=== PATIENT | male | born 1950 | race African-American/Black ===

== ENCOUNTER 2018-06-12 07:55 | Emergency (ER) | payer MEDICARE, OTHER ==
[~2018-06-12] VITALS: Ht 180.3 cm; Wt 96.2 kg
[2018-06-12] MEDS ORDERED: ACETAMINOPHEN 500 MG TABLET PO ONE (08:30)
--- NOTE | 2018-06-12 08:38 | RAD ---
PA and lateral chest radiograph. History: Cough, dyspnea. Comparison: None. Findings: Cardiomediastinal silhouette is within normal limits for size. Bilateral lung david appear clear without evidence of infiltrate, effusion, or pneumothorax. Multiple thoracic levels demonstrate marginal disc osteophytes. Impression: 1. No acute cardiopulmonary process. Electronically signed by: Bar Razo MD (06/12/2018 8:34 AM) [place] [id number]
[2018-06-12 08:52] LABS: BASO # 0.1 x10^3/uL (0.0-0.2); BASO % 1 % (0-3); EOS # 0.1 x10^3/uL (0.0-0.7); EOS % 1 % (0-3); HEMATOCRIT 42.6 % (39.0-53.0); HEMOGLOBIN 14.2 g/dL (13.0-17.5); LYMPH # 0.9 x10^3/uL (1.0-4.8); LYMPH % 10 % (24-48); MEAN CORPUSCULAR HEMOGLOBIN 33 pg (25-35); MEAN CORPUSCULAR HGB CONC 33 g/dL (31-37); MEAN CORPUSCULAR VOLUME 98 fL (79-100); MONO # 0.6 x10^3/uL (0.0-1.1); MONO % 7 % (0-9); NEUT # 7.2 x10^3uL (1.8-7.7); NEUT % 81 % (31-73); PLATELET COUNT 265 x10^3/uL (140-400); RED BLOOD COUNT 4.33 x10^6/uL (4.30-5.70); RED CELL DISTRIBUTION WIDTH 14.4 % (11.5-14.5); WHITE BLOOD COUNT 8.8 x10^3/uL (4.0-11.0)
--- NOTE | 2018-06-12 09:02 | PHYS DOC ---
Past History Past Medical History: No Pertinent History Past Surgical History: No Surgical History Alcohol Use: None Drug Use: None Adult General Chief Complaint Chief Complaint: SHORTNESS OF BREATH HPI HPI Patient is a 68-year-old male who presents with complaint of lower back pain that has been present for the last couple weeks. Patient states that pain has progressively gotten worse. He states that he has been to see a chiropractor and has had adjustments which initially helped somewhat but the pain always returns. He denies any injuries. He also denies any urinary discomfort. He does admit to fever however. He states that he has been a little bit short of breath and has had a mild intermittent cough. He denies any actual sputum production. Patient states that pain is worsened with bending over. He states that nothing seems to improve the pain. He rates pain as moderate. Review of Systems Review of Systems Constitutional: Admits to fever and chills[] Respiratory: Admits to mild cough and shortness of breath [] Cardiovascular: Denies chest pain Abdominal: Denies abdominal pain but does admit to mild abdominal bloating. Musculoskeletal: Admits to lower back pain [] Integument: Denies rash or skin lesions [] Neurologic: Denies loss of bowel or bladder function [] All other systems were reviewed and found to be within normal limits, except as documented in this note. Current Medications Current Medications Current Medications Medications (Trade) Dose Ordered Sig/Alejandro Start Time Stop Time Status Last Admin Dose Admin Acetaminophen (Tylenol) 1,000 mg 1X ONCE 06/12/18 08:30 06/12/18 08:31 UNV 06/12/18 08:50 1,000 MG Physical Exam Physical Exam Constitutional: Well developed, well nourished, no acute distress, non-toxic appearance. [] HENT: Normocephalic, atraumatic, bilateral external ears normal, oropharynx moist, no oral exudates, nose normal. [] Eyes: PERRLA, EOMI, conjunctiva normal, no discharge. [] Neck: Normal range of motion, no tenderness, supple, no stridor. [] Cardiovascular:Heart rate regular rhythm, no murmur [] Lungs & Thorax: Bilateral breath sounds clear to auscultation [] Abdomen: Bowel sounds normal, soft, no tenderness, no masses, no pulsatile masses. [] Skin: Warm, dry, no erythema, no rash. [] Back: There is mild tenderness to palpation in the bilateral lower lumbar paraspinal musculature. [] Extremities: No tenderness, no cyanosis, no clubbing, ROM intact, no edema. [] Neurologic: Alert and oriented X 3, normal motor function, normal sensory function, no focal deficits noted. [] Current Patient Data Vital Signs Vital Signs Date Time Temp Pulse Resp B/P (MAP) Pulse Ox O2 Delivery O2 Flow Rate FiO2 06/12/18 08:00 100.0 103 22 96 Room Air Lab Results Laboratory Tests Test 06/12/18 08:37 White Blood Count 8.8 x10^3/uL (4.0-11.0) Red Blood Count 4.33 x10^6/uL (4.30-5.70) Hemoglobin 14.2 g/dL (13.0-17.5) Hematocrit 42.6 % (39.0-53.0) Mean Corpuscular Volume 98 fL (79-100) Mean Corpuscular Hemoglobin 33 pg (25-35) Mean Corpuscular Hemoglobin Concent 33 g/dL (31-37) Red Cell Distribution Width 14.4 % (11.5-14.5) Platelet Count 265 x10^3/uL (140-400) Neutrophils (%) (Auto) 81 % (31-73) H Lymphocytes (%) (Auto) 10 % (24-48) L Monocytes (%) (Auto) 7 % (0-9) Eosinophils (%) (Auto) 1 % (0-3) Basophils (%) (Auto) 1 % (0-3) Neutrophils # (Auto) 7.2 x10^3uL (1.8-7.7) Lymphocytes # (Auto) 0.9 x10^3/uL (1.0-4.8) L Monocytes # (Auto) 0.6 x10^3/uL (0.0-1.1) Eosinophils # (Auto) 0.1 x10^3/uL (0.0-0.7) Basophils # (Auto) 0.1 x10^3/uL (0.0-0.2) EKG EKG [] Radiology/Procedures Radiology/Procedures [] Impressions: Impression: 1. Examination is nondiagnostic for detection of pulmonary embolism. 2. Trace left pleural effusion. 3. Stigmata of cirrhosis and portal hypertension. Ascites. 4. Abnormal appearance to the main portal vein. It is uncertain if there is portal venous thrombosis versus mixing artifact. Course & Med Decision Making Course & Med Decision Making Pertinent Labs and Imaging studies reviewed. Patient does indicate that he is aware of diagnosis of cirrhosis. Patient strongly encouraged to establish care with a new primary care physician. (See chart for details) [] Dragon Disclaimer Dragon Disclaimer This electronic medical record was generated, in whole or in part, using a voice recognition dictation system. Departure Departure: Impression: Primary Impression: Urinary tract infection Additional Impressions: Cirrhosis Ascites Disposition: HOME, SELF-CARE Condition: STABLE Referrals: LUZ SALINAS DO (PCP) Patient Instructions: Ascites, Cirrhosis, Urinary Tract Infection Additional Instructions: Take prescribed medication as directed and tablets care with a primary care physician in the next week. Problem Qualifiers Primary Impression: Urinary tract infection Urinary tract infection type: site unspecified Hematuria presence: without hematuria Qualified Codes: N39.0 - Urinary tract infection, site not specified Additional Impressions: Cirrhosis Hepatic cirrhosis type: unspecified hepatic cirrhosis Ascites presence: with ascites Qualified Codes: K74.60 - Unspecified cirrhosis of liver; R18.8 - Other ascites Ascites Ascites type: other type Qualified Codes: R18.8 - Other ascites ESTRELLA ADRIAN Jr., DO Jun 12, 2018 09:02
[2018-06-12 09:31] LABS: ALBUMIN 2.8 g/dL (3.4-5.0); ALBUMIN/GLOBULIN RATIO 0.4 (1.0-1.7); CALCIUM 9.2 mg/dL (8.5-10.1); CREATININE 1.2 mg/dL (0.7-1.3); GFR 73.1; POTASSIUM 3.8 mmol/L (3.5-5.1); TOTAL BILIRUBIN 1.3 mg/dL (0.2-1.0); TOTAL PROTEIN 9.4 g/dL (6.4-8.2)
[2018-06-12 10:48] LABS: BACTERIA,URINE FEW /HPF (0-FEW); BILIRUBIN,URINE NEG (NEG); CLARITY,URINE HAZY; COLOR,URINE AMBER; GLUCOSE,URINE NEG (NEG); NITRITE,URINE POS (NEG); SQUAMOUS EPITHELIAL CELL,UR FEW /LPF; UROBILINOGEN,URINE 1 mg/dL (0.2 mg/dL); WBC,URINE >40 /HPF (0-4)
[2018-06-12] MEDS ORDERED: IOHEXOL 300 MG/ML 75 ML VIAL. IV ONE (11:20)
[2018-06-12] MEDS ORDERED: cefTRIAXone IV Push 1 GM VIAL. IVP ONE (11:30)
--- NOTE | 2018-06-12 11:36 | RAD ---
CT pulmonary angiogram with intravenous contrast History: Shortness air. Elevated d-dimer. Chest pain Comparison: None. Technique: CT angiogram of the chest with attention to the pulmonary arteries was performed after the administration of intravenous contrast, 75 mL Omnipaque-300. Axial 2-D reconstructions were obtained. Coronal 3-D MIPS were obtained of the chest. Exposure: One or more of the following individualized dose reduction techniques were utilized for this examination: 1. Automated exposure control 2. Adjustment of the mA and/or kV according to patient size 3. Use of iterative reconstruction technique Findings: Pulmonary arteries are adequately opacified. Examination is nondiagnostic for detection of pulmonary embolism. Trachea and mainstem bronchi appear patent. Visualized thyroid appears symmetric. No acute airspace disease is identified. Trace left pleural effusion is present. No pneumothorax is seen. No mediastinal lymphadenopathy is seen. Thoracic aorta has normal caliber. Heart and pericardium are unremarkable. [id number] bilateral gynecomastia is seen. Images the upper chest demonstrate a cirrhotic liver. Ascites is seen. A few nonspecific low-attenuation foci are seen involving the liver, not adequately evaluated. There is abnormal appearance of the portal vein and branches in the liver raising possibility of portal venous thrombosis versus mixing artifact. Impression: 1. Examination is nondiagnostic for detection of pulmonary embolism. 2. Trace left pleural effusion. 3. Stigmata of cirrhosis and portal hypertension. Ascites. 4. Abnormal appearance to the main portal vein. It is uncertain if there is portal venous thrombosis versus mixing artifact. Electronically signed by: Bar Razo MD (06/12/2018 11:32 AM) [id number]
[2018-06-12] MEDS ORDERED: ONDANSETRON PF 4 MG/2 ML VIAL. IV ONE (12:10)
[2018-06-12 12:50] VITALS: BP 154/85
== END 2018-06-12 12:50 | disposition home or self-care (01) ==
LOC: ER 07:55
DX: N39.0 Urinary tract infection, site not specified (principal); K74.60 Unspecified cirrhosis of liver; R18.8 Other ascites
CPT/HCPCS: 36415; 71046; 71275; 80053; 81001; 85025; 85379; 87086; 96374; 96375; 99285; J0696; J2405; Q9967

== ENCOUNTER → 2018-06-28 | Outpatient (CLI) | payer MEDICARE, OTHER ==
[2018-06-12 12:50] VITALS: BP 154/85
[~2018-06-28] MED LIST: IOHEXOL 240 MG/ML 50ML VIAL. ONE; IOHEXOL 300 MG/ML 75 ML VIAL. IV ONE
--- NOTE | 2018-06-28 12:38 | RAD ---
EXAM: CT Abdomen and Pelvis with IV contrast CLINICAL HISTORY: alcohol hepatitis with ascites, abd pain COMPARISON: CT PE protocol on 06/12/2018 TECHNIQUE: Helical CT of the abdomen and pelvis was performed following the administration of intravenous contrast. Oral contrast was administered. Axial, coronal and sagittal reformatted images were generated. PQRS compliance statement - One or more of the following individualized dose reduction techniques were utilized for this study: 1. Automated exposure control 2. Adjustment of the mA and/or kV according to patient size 3. Use of iterative reconstruction technique FINDINGS: Lower chest: Minimal scarring/atelectasis of the right lower lobe. Abdomen and Pelvis: The liver is cirrhotic in morphology. Numerous hypodense lesions are seen throughout the liver, the majority measure fluid density, however there are several other lesions that measures soft tissue density for example posterior right hepatic lobe lesion measures 4.7 cm and left hepatic lobe lesion measures 1.8 cm. There is distention of the portal vein with associated filling defect extending through the left and right hepatic veins to the level of the SMV. This occupies 90% of the portal vein just beyond the SMV. Spleen is enlarged measuring 16 cm in length. Small splenule is seen. The adrenal glands and pancreas are unremarkable. A few high density foci within the gallbladder possibly gallstones. No biliary ductal dilatation. Symmetric nephrograms. No focal renal lesion. No hydronephrosis. Small volume abdominal and pelvic ascites. No abdominal or pelvic lymphadenopathy. Diverticulosis without evidence of acute diverticulitis. Fat deposition within the cecal wall, possibly from inflammatory bowel disease. Appendix is normal. No evidence for bowel obstruction. Small fat-containing periumbilical hernia is seen. Fat-containing inguinal hernias are seen bilaterally. Mild degenerative changes of the spine are seen, most prominent in the lower thoracic spine. IMPRESSION: 1. Hepatic cirrhosis with findings of portal hypertension. 2. 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 Numerous hypodense hepatic lesions are seen and although the majority represent cysts, several measures soft tissue density and therefore metastases or primary hepatic lesion are not excluded. This can be further assessed by MRI liver with and without contrast if not recently performed. 4. Small volume abdominal ascites. 5. Cecal wall changes with associated fat deposition possibly from associated inflammatory process. 6. Colonic diverticulosis without evidence of acute diverticulitis. Electronically signed by: Anival Rogers MD (06/28/2018 12:35 PM) [id number]
== END | disposition home or self-care (01) ==
LOC: CT 09:58
PROVIDERS: ATTEND Neuromusculoskeletal Medicine & OMM
DX: K74.69 Other cirrhosis of liver (principal); I81 Portal vein thrombosis; K57.30 Diverticulosis of large intestine without perforation or abscess without bleeding; K76.89 Other specified diseases of liver; K40.20 Bilateral inguinal hernia, without obstruction or gangrene, not specified as recurrent; R16.1 Splenomegaly, not elsewhere classified
CPT/HCPCS: 74177; Q9966; Q9967